=== PATIENT | male | born 1960 | race Caucasian/White ===

== ENCOUNTER → 2020-09-23 | Outpatient (CLI) | payer OTHER | LOC: M.WC 08:43 | PROVIDERS: ATTEND Family Medicine | DX: S41.152A Open bite of left upper arm, initial encounter (principal); S51.802A Unspecified open wound of left forearm, initial encounter; L03.114 Cellulitis of left upper limb; I48.91 Unspecified atrial fibrillation; J44.9 Chronic obstructive pulmonary disease, unspecified; F41.1 Generalized anxiety disorder; Z87.891 Personal history of nicotine dependence; Z79.899 Other long term (current) drug therapy; W54.0XXA Bitten by dog, initial encounter; Y93.89 Activity, other specified; Y92.89 Other specified places as the place of occurrence of the external cause; Y99.8 Other external cause status ==

== ENCOUNTER → 2020-09-30 | Outpatient (CLI) | payer OTHER | LOC: M.WC 10:55 | PROVIDERS: ATTEND Family Medicine | DX: S41.152D Open bite of left upper arm, subsequent encounter (principal); S51.802D Unspecified open wound of left forearm, subsequent encounter; L03.114 Cellulitis of left upper limb; I48.91 Unspecified atrial fibrillation; J44.9 Chronic obstructive pulmonary disease, unspecified; F41.1 Generalized anxiety disorder; Z87.891 Personal history of nicotine dependence; Z79.899 Other long term (current) drug therapy; W54.0XXD Bitten by dog, subsequent encounter ==

== ENCOUNTER → 2020-10-07 | Outpatient (CLI) | payer OTHER | LOC: M.WC 10:19 | PROVIDERS: ATTEND Family Medicine | DX: S41.152D Open bite of left upper arm, subsequent encounter (principal); S51.802D Unspecified open wound of left forearm, subsequent encounter; L03.114 Cellulitis of left upper limb; I48.91 Unspecified atrial fibrillation; J44.9 Chronic obstructive pulmonary disease, unspecified; F41.1 Generalized anxiety disorder; Z87.891 Personal history of nicotine dependence; Z79.899 Other long term (current) drug therapy; W54.0XXD Bitten by dog, subsequent encounter ==

== ENCOUNTER → 2020-10-14 | Outpatient (CLI) | payer OTHER | LOC: M.WC 10:21 | PROVIDERS: ATTEND Family Medicine | DX: S41.152D Open bite of left upper arm, subsequent encounter (principal); S51.802D Unspecified open wound of left forearm, subsequent encounter; L03.114 Cellulitis of left upper limb; I48.91 Unspecified atrial fibrillation; J44.9 Chronic obstructive pulmonary disease, unspecified; F41.1 Generalized anxiety disorder; Z87.891 Personal history of nicotine dependence; Z79.899 Other long term (current) drug therapy; W54.0XXD Bitten by dog, subsequent encounter ==

== ENCOUNTER → 2020-10-21 | Outpatient (CLI) | payer OTHER | LOC: M.WC 10:49 | PROVIDERS: ATTEND Family Medicine | DX: S41.152D Open bite of left upper arm, subsequent encounter (principal); S51.802D Unspecified open wound of left forearm, subsequent encounter; L03.114 Cellulitis of left upper limb; I48.91 Unspecified atrial fibrillation; J44.9 Chronic obstructive pulmonary disease, unspecified; F41.1 Generalized anxiety disorder; Z87.891 Personal history of nicotine dependence; W54.0XXD Bitten by dog, subsequent encounter ==

== ENCOUNTER → 2020-10-28 | Outpatient (CLI) | payer OTHER | LOC: M.WC 10:31 | PROVIDERS: ATTEND Family Medicine | DX: S41.152D Open bite of left upper arm, subsequent encounter (principal); S51.802D Unspecified open wound of left forearm, subsequent encounter; L03.114 Cellulitis of left upper limb; I48.91 Unspecified atrial fibrillation; J44.9 Chronic obstructive pulmonary disease, unspecified; F41.1 Generalized anxiety disorder; Z87.891 Personal history of nicotine dependence; W54.0XXD Bitten by dog, subsequent encounter ==